=== PATIENT | male | born 1965 ===

== ENCOUNTER → 2022-08-29 10:12 | Outpatient (CLI) | payer OTHER, SELFPAY ==
--- NOTE | ~2022-08-29 | MR_ITS ---
MRI of the right ankle Clinical history: Pain Technique: Coronal proton-density and proton-density fat-sat images, axial proton-density and proton- density fat-sat images, and sagittal proton-density and proton-density fat-sat images were acquired. Findings: Syndesmotic ligaments are intact. Anterior and posterior talofibular ligaments, and calcane ofibular ligament appear intact. Deltoid ligament is intact. Medial flexor tendons, peroneal tendons, anterior extensor tendons, and Achilles tendon are intact. There is nonspecific marrow edema at the mid talar body, likely related to degenerative change of the subtalar facet. No osteochondral lesion of the talar dome. There is mild amorphous marrow edema in t he cuboid. There is mild amorphous marrow edema in the middle cuneiform. No joint effusion evident. There is edema like signal in the sinus Tarsi. Plantar fascia intact. There is mild nonspecific soft tissue edema about the ankle. Impression: Amorphous marrow edema in the cuboid, suggestive of bone contusion versus other reactive or stress ed soraya. Additional bone marrow edema in the middle cuneiform, possibly on a degenerative basis versus additio nal bone contusion or stress response. Edema-like signal in the sinus Tarsi, nonspecific. Correlate for sinus Tarsi syndrome. Reviewed, dictated and finalized at location . Impression: Amorphous marrow edema in the cuboid, suggestive of bone contusion versus other reactive or stress edema. Additional bone marrow edema in the middle cuneiform, possibly on a degenerativ e basis versus additional bone contusion or stress response. Edema-like signal in the sinus Tarsi, nonspecific. Correlate for sinus Tarsi sy ndrome.
== END ==
PROVIDERS: PCP Orthopaedic Surgery; Visit Provider Orthopaedic Surgery
DX: M79.671 Pain in right foot (principal); R60.9 Edema, unspecified
CPT/HCPCS: 73721